=== PATIENT | female | born 1975 | race Caucasian/White ===

== ENCOUNTER 2018-11-18 20:37 | Inpatient (IN) ==
[2018-11-18 21:05] LABS: BASO# 0.09 X1000 (0.0-0.2); BASO% 1.1 % (0.0-0.8); EOS# 0.27 X1000 (0.0-0.7); EOS% 3.4 % (0.0-10.0); HEMATOCRIT 44.9 % (37.0-47.0); HEMOGLOBIN 15.3 g/dL (12.0-16.0); IMM GRAN# 0.02 X1000 (0.0-0.04); IMM GRAN% 0.2 % (0.0-0.5); LYMPH# 2.58 X1000 (1.2-3.4); LYMPH% 32.1 % (20.5-51.1); MCH 30.5 PG (27-31); MCHC 34.1 g/dL (33-37); MCV 89.4 FL (81-99); MPV 9.6 FL (7.4-10.4); NEUT# 4.68 X1000 (1.4-6.5); NEUT% 58.2 % (42.2-75.2); PLT 363 X1000 (130-400); RBC 5.02 XMIL (4.2-5.4); RDW 13.5 % (11.5-14.5); WBC 8.04 X1000 (4.8-10.8)
[2018-11-18 21:19] LABS: BILIRUBIN URINE NEGATIVE (NEGATIVE); BLOOD URINE NEGATIVE (NEGATIVE); CLARITY CLEAR (CLEAR); COLOR YELLOW; GLUCOSE URINE NEGATIVE (NEGATIVE); KETONE URINE NEGATIVE (NEGATIVE); LEUKOCYTES URINE NEGATIVE (NEGATIVE); NITRITE URINE NEGATIVE (NEGATIVE); PROTEIN URINE TRACE mg/dL (NEGATIVE); UROBILINOGEN URINE NORMAL
[2018-11-18 21:23] LABS: URINE BACTERIA NEGATIVE /HFP; URINE CAST NONE SEEN /LPF; URINE CRYSTAL NONE SEEN /HPF; URINE EPITHELIAL CELLS <10 /HPF (<10); URINE RBC <10 /HPF (<10); URINE SOURCE CLEAN CATCH; URINE WBC <10 /HPF (<10); URINE YEAST PRESENT /HPF
[2018-11-18 21:27] LABS: AGAP 17; ALKALINE PHOSPHATASE 68 U/L (32-104); BUN 13 mg/dL (8-22); CALCIUM 10.1 mg/dL (8.8-10.2); CHLORIDE 100 mmol/L (98-107); COSMO 284; CREATININE 0.7 mg/dL (0.5-0.9); ESTIMATED GFR > 60; GLUCOSE 115 mg/dL (70-104); GOT 20 U/L (10-30); GPT 18 U/L (10-36); LIPASE 49 U/L (13-60); POTASSIUM 4.2 mmol/L (3.5-5.1); SODIUM 142 mmol/L (136-145); TCO2 26 mmol/L (25-35); TOTAL PROTEIN 8.1 g/dL (6.3-8.3)
--- NOTE | 2018-11-18 21:37 | Diag Imaging Result Doc PS360 ---
EXAM: FLAT/UPRIGHT ABD/1 VIEW CHEST INDICATION: VOMITING HX BOWEL OBSTRUCTION TECHNIQUE: 3 views COMPARISON: CT of the chest, abdomen, and pelvis dated 03/28/2018. No prior plain radiograph of the chest or abdomen is available for comparison. FINDINGS: There are multiple metallic clips projecting over the pelvis related to a prior hysterectomy. There are unremarkable bowel gas and stool patterns. There is no obstructive bowel pattern. There is no evidence of large volume free abdominal gas. There is no evidence of organomegaly. There are multiple prominent masses throughout the lung parenchyma bilaterally consistent with metastatic sarcoma. These were also seen on the prior chest CT. There are also emphysematous changes bilaterally with gas-filled blebs, worst at the left lung base and the right midlung zone. There is a surgical staple line associated with the right midlung zone. No definite pneumothorax is appreciated. The cardiomediastinal silhouette and central vasculature are grossly unremarkable. IMPRESSION: 1.No definite acute abdominal pathology by plain radiograph. 2.Extensive metastatic to both lungs that was also seen on previous CT. Electronically signed by Allan Leach 11/18/2018 9:34 PM
--- NOTE | 2018-11-18 22:24 | PROVIDER DOCUMENTATION ---
HPI-Abdominal Pain/GI Problem - General Chief Complaint: Abdominal Pain Stated Complaint: BOWEL OBSTRUCTION Time Seen by Provider: 11/18/18 22:23 Source: patient Allergies/Adverse Reactions: Patient Allergies Allergy/AdvReac Type Severity Reaction Status Date / Time hydromorphone [From Dilaudid] AdvReac NAUSEA/VOMI Verified 11/19/18 00:14 TING sulfamethoxazole AdvReac NAUSEA/VOMI Verified 11/18/18 20:49 [From Bactrim] TING trimethoprim [From Bactrim] AdvReac NAUSEA/VOMI Verified 11/18/18 20:49 TING Home Medications: Home Medication List Medication Instructions Recorded Confirmed Last Taken Type Denosumab [Prolia] 60 mg SQ DIRECTED 11/19/18 11/19/18 Unknown History Fluticasone 50 Mcg Nasal [place] 16 gm NS PRN PRN 11/19/18 11/19/18 Unknown History [Flonase] Letrozole 1 tab PO DAILY 11/19/18 11/19/18 Unknown History Leuprolide Acetate [Lupron] 1 mg SQ DIRECTED 11/19/18 11/19/18 Unknown History Teriflunomide [Aubagio] 1 tab PO DAILY 11/19/18 11/19/18 Unknown History - History of Present Illness-ABD Nature of Presenting Problems: Patient is a 43 yowf presenting to the ED today for nausea and vomiting. She reports the pain as intermittent. She states she has a history of bowel obstructions. She has a history of lung cancer. She reports she has been hospitalized for the obstructions before. She denies any chest pain, SOB, dizziness, diarrhea. Abdominal Pain Onset Location: reports: LLQ, generalized abdomen Pain Radiation: reports: no radiation Quality of Pain: reports: aching, sharp, stabbing Severity in ED: reports: moderate Onset/Duration: reports: 4-6 hours ago Timing: reports: still present, intermittent Activities at Onset: reports: none Exposure to sick contacts?: No Modifying Factors: improves with: nothing Associated Symptoms: reports: nausea, vomiting. denies: chest pain, constipation, cough, diarrhea, dizziness, genitourinary problems, shortness of breath, swelling/mass in abdomen Last BM: this morning Dark Stools Present?: reports: none noticed Rectal Bleeding: reports: none Rectal Pain: reports: none Emesis Description: reports: clear Bruising or Bleeding Gums?: No Similar Symptoms Previously?: Yes Recently seen or treated by another doctor?: No Review of Systems - Adult - REVIEW OF SYSTEMS - ADULT Constitutional: reports: no symptoms reported. denies: chills, fever Eyes: reports: no symptoms reported Ears, Nose, Mouth & Throat: reports: no symptoms reported Cardiovascular: reports: no symptoms reported. denies: chest pain Respiratory: reports: no symptoms reported. denies: cough, shortness of breath Gastrointestinal: reports: abdominal pain, nausea, vomiting. denies: diarrhea, rectal bleeding Genitourinary: reports: no symptoms reported Musculoskeletal: reports: no symptoms reported Integumentary: reports: no symptoms reported Neurological: reports: no symptoms reported. denies: dizziness/vertigo, headache/migraines Psychiatric: reports: no symptoms reported Endocrine: reports: no symptoms reported Hematologic/Lymphatic: reports: no symptoms reported Allergic/Immunologic: reports: no symptoms reported All Other Systems: Reviewed and Negative Past History - Adult - PAST MEDICAL HISTORY-ADULT Review of Records: reports: Old Records Reviewed, Nursing Assessment Review, Medications Reviewed Major Childhood Illnesses: reports: denies history Cardiovascular: reports: denies history Respiratory: reports: other (lung cancer) Gastrointestinal: reports: obstruction Obstetrical/Gynecological: reports: denies history Genitourinary: reports: denies history Musculoskeletal: reports: denies history Neurological: reports: denies history Psychiatric: reports: denies history Endocrine/Immune: reports: denies history Other Conditions: reports: denies history - SOCIAL HISTORY Smoking: denies Physical Exam-General - PHYSICAL EXAM-ADULT Initial Vital Signs Reviewed: Yes - CONSTITUTIONAL General Appearance: alert, mild distress - EYES Eyes: PERRL/EOMI, pink conjunctivae - HEAD, EARS, NOSE, MOUTH & THROAT HENMT: normocephalic/atraumatic, moist mucous membranes - NECK Neck: non-tender, full range of motion, supple - RESPIRATORY Respiratory: chest non-tender, lungs clear, normal breath sounds, no respiratory distress - CARDIOVASCULAR Cardiovascular: normal peripheral pulses, regular rate, rhythm, no edema, no gallop, no JVD, no murmur - GASTROINTESTINAL (ABDOMEN) Abdominal Exam: normal bowel sounds, non tender, soft, no organomegaly - LYMPHATIC Lymphatic: no adenopathy - MUSCULOSKELETAL Back Exam: normal inspection, no CVA tenderness, no vertebral tenderness Extremity: normal range of motion, non-tender, normal inspection - SKIN Integumentary: normal color, normal turgor, warm/dry - NEUROLOGIC Neurologic: grossly normal - PSYCHIATRIC Psych/Mental Status: normal mood/affect, normal thought content, normal thought process, oriented x 3 Progress - PLAN OF CARE/RESULTS Progress/Plan/Lab Results: Vital Signs - 8 hr 11/18/18 20:41 Temperature 98.3 F Pulse Rate 95 H Respiratory Rate 18 Blood Pressure 165/109 O2 Sat by Pulse Oximetry 94 L Laboratory Results - last 24 hr 11/18/18 11/18/18 11/18/18 20:56 20:56 20:56 WBC 8.04 RBC 5.02 Hgb 15.3 Hct 44.9 MCV 89.4 MCH 30.5 MCHC 34.1 RDW Std Deviation 13.5 Plt Count 363 MPV 9.6 Immature Gran % (Auto) 0.2 Neut % (Auto) 58.2 Lymph % (Auto) 32.1 [place] % (Auto) 5.0 Eos % (Auto) 3.4 Baso % (Auto) 1.1 H Immature Gran # (Auto) 0.02 Neut # (Auto) 4.68 Lymph # (Auto) 2.58 [place] # (Auto) 0.40 Eos # (Auto) 0.27 Baso # (Auto) 0.09 Sodium 142 Potassium 4.2 Chloride 100 Carbon Dioxide 26 Anion Gap 17 BUN 13 Creatinine 0.7 Estimated GFR/1.73 m2 > 60 BUN/Creatinine Ratio 19 Glucose 115 H Calculated Osmolality 284 Calcium 10.1 Total Bilirubin 0.40 AST 20 ALT 18 Alkaline Phosphatase 68 Total Protein 8.1 Albumin 5.0 Globulin 3.0 Albumin/Globulin Ratio 2.0 Amylase 77 Lipase 49 Urine Source Urine Color Urine Clarity Urine pH Ur Specific [place] Urine Protein Urine Ketones Urine Blood Urine Nitrite Urine Bilirubin Urine Urobilinogen Urine Microscopic RBC Urine WBC Urine Microscopic WBC Ur Epithelial Cells Urine Crystals Urine Bacteria Urine Casts Urine Yeast Urine Glucose 11/18/18 21:10 WBC RBC Hgb Hct MCV MCH MCHC RDW Std Deviation Plt Count MPV Immature Gran % (Auto) Neut % (Auto) Lymph % (Auto) [place] % (Auto) Eos % (Auto) Baso % (Auto) Immature Gran # (Auto) Neut # (Auto) Lymph # (Auto) [place] # (Auto) Eos # (Auto) Baso # (Auto) Sodium Potassium Chloride Carbon Dioxide Anion Gap BUN Creatinine Estimated GFR/1.73 m2 BUN/Creatinine Ratio Glucose Calculated Osmolality Calcium Total Bilirubin AST ALT Alkaline Phosphatase Total Protein Albumin Globulin Albumin/Globulin Ratio Amylase Lipase Urine Source CLEAN CATCH Urine Color YELLOW Urine Clarity CLEAR Urine pH 7.0 Ur Specific [place] 1.010 Urine Protein TRACE A Urine Ketones NEGATIVE Urine Blood NEGATIVE Urine Nitrite NEGATIVE Urine Bilirubin NEGATIVE Urine Urobilinogen NORMAL Urine Microscopic RBC <10 Urine WBC NEGATIVE Urine Microscopic WBC <10 Ur Epithelial Cells <10 Urine Crystals NONE SEEN Urine Bacteria NEGATIVE Urine Casts NONE SEEN Urine Yeast PRESENT Urine Glucose NEGATIVE Orders Category Date Time Status FLAT/UPRIGHT ABD/1 VIEW CHEST [RAD] Stat Exams 11/18/18 20:56 Completed AMYLASE [CHEM] Stat Lab 11/18/18 20:56 Completed CBC WITH DIFF [HEME] Stat Lab 11/18/18 20:56 Completed CMP [COMPREHENSIVE METABOLIC PANEL] [CHEM] Stat Lab 11/18/18 20:56 Completed LIPASE [CHEM] Stat Lab 11/18/18 20:[address] W/POSS RFLX CULT [URINALYSIS] Stat Lab 11/18/18 21:10 Completed Discussed plan of care with patient and family, they understand and agree with plan of care. Deny any questions at this time. 22:40- discussed plan of care with Dr. Mcgill, he suggests CT abdomen. 23:07- Dr. Mcgill in to see patient. Patient having anxiety attack and he sugges kj ativan 1 mg IV. Result Diagrams: 11/18/18 20:56 11/18/18 20:56 - XRAY 1 XRAY Study: Abdomen Impression: See EMR Report ( EXAM: FLAT/UPRIGHT ABD/1 VIEW CHEST INDICATION: VOMITING HX BOWEL OBSTRUCTION TECHNIQUE: 3 views COMPARISON: CT of the chest, abdomen, and pelvis dated 03/28/2018. No prior plain radiograph of the chest or abdomen is available for comparison. FINDINGS: There are multiple metallic clips projecting over the pelvis related to a prior hysterectomy. There are unremarkable bowel gas and stool patterns. There is no obstructive bowel pattern. There is no evidence of large volume free abdominal gas. There is no evidence of organomegaly. There are multiple prominent masses throughout the lung parenchyma bilaterally consistent with metastatic sarcoma. These were also seen on the prior chest CT. There are also emphysematous changes bilaterally with gas-filled blebs, worst at the left lung base and the right midlung zone. There is a surgical staple line associated with the right midlung zone. No definite pneumothorax is appreciated. The cardiomediastinal silhouette and central vasculature are grossly unremarkable. IMPRESSION: 1.No definite acute abdominal pathology by plain radiograph. 2.Extensive metastatic to both lungs that was also seen on previous CT. Electronically signed by Allan Leach 11/18/2018 9:34 PM 11/18/182133 Interpreting Physician: Allan Leach MD Dictated Date/Time: 11/18/182127 cc: Lazaro Mcgill MD; Osvaldo Harley MD) - CT/MRI 1 CT Study: Abdomen, Pelvis Impression: Abnormal, Discussed w/Radiology CT Results: Dr. Mcgill spoke with vrad- partial distal SBO - CONSULTS/PCP/HOSPITALIST Notification #1 *Consult/PCP/Hospitalist*: Dr. Garrett Time Discussed: 12:15 Reason/Comments: admit for partial distal small bowel obstruction Consult Disposition: Admit Departure - Departure Date of Disposition Decision: 11/18/18 Time of Disposition Decision: 12:00 DIAGNOSIS: Small bowel obstruction Abdominal pain Qualifiers: Abdominal location: generalized Qualified Code(s): R10.84 - Generalized abdominal pain Disposition: ADMITTED INPATIENT 09 Certified Medical Emergency: Emergent Condition: Stable Referrals and Follow-Ups: Osvaldo Harley MD [Primary Care Provider] - - Critical Care Note This patient required my direct & personal management of CC.: No Attestation - Physician/ CHEMA Attestation Patient care was provided by Advanced Practice Provider:: Yes Advanced Practice Provider:: Radha Oliver Advanced Practice Provider documentation review:: The Mid-level provider documentation, treatment plan and medical decision making was reviewed by the physician who agrees with all treatment and medical decision making by the [facility]. The physician spent face to face time with patient:: Yes Advanced Practice Provider documentation review:: Supervising physician onsite and consulted in the evaluation and care of this patient. The physician did have a face to face encounter with the patient.
[2018-11-18] MEDS ORDERED: ATIVAN IV ONE ×2 (23:05→23:25)
[2018-11-19] MEDS ORDERED: ZOFRAN IV PRN ×2 (00:15→06:51)
[2018-11-19] MEDS ORDERED: NS 1,000 ML IV ONE ×2 (00:15→07:00)
[2018-11-19] MEDS ORDERED: MORPHINE IV PRN ×2 (00:15→06:51)
[2018-11-19] MEDS ORDERED: ATIVAN IV PRN ×2 (00:23→06:52)
--- NOTE | 2018-11-19 05:26 | Diag Imaging Result Doc PS360 ---
EXAM: CT ABD/PELVIS W/IV CONT ONLY HISTORY: abd pain TECHNIQUE: CT abdomen and pelvis with intravenous contrast COMPARISON: 07/29/2017 chest, abdomen and pelvis CT FINDINGS: There are large bulla in the lung bases. There are also multiple mixed density round masses in the lower lungs. The largest are in the left lung base along the pleural surface. There are two diffuse measuring 4.1 cm. These are similar in size to the prior study. There are multiple smaller nodules which are fairly similar as well. The gallbladder is contracted. There is enhancing of the wall, but no adjacent inflammation. Normal liver, spleen, pancreas, adrenal glands, and kidneys. There is a tiny right renal cyst. No hydronephrosis. Normal aorta. There is fluid and mild distention of multiple small bowel loops in the lower abdomen and pelvis. There is fecalization within several of the bowel loops. Transition point appears to be low in the pelvis where there are multiple surgical clips. Stool is found throughout the colon. The uterus has been removed. No pelvic mass. There is a small amount of free fluid. The urinary bladder is mildly distended. IMPRESSION: 1.Likely partial small bowel obstruction level in the pelvis 2.Hysterectomy 3.Multiple stable lower lung masses 4.A preliminary report was given at 12:12 AM This exam was performed using automated exposure control, adjustment of mA or kV according to patient size, and/or use of iterative reconstruction technique. Electronically signed by Shailesh Simeon 11/19/2018 5:24 AM
--- NOTE | 2018-11-19 07:56 | GENERAL SURGERY CONSULTATION ---
DATE: 11/19/2018 REQUESTING PHYSICIAN: Hospitalist. REASON FOR CONSULTATION: Bowel obstruction. HISTORY OF PRESENT ILLNESS: A 43-year-old female with a history of uterine sarcoma that is being followed by physicians in [place], presenting now with intermittent abdominal pain that started the day of presentation. She has been in the hospital for obstructions before, and says this is similar to that. The pain is mostly left lower quadrant, but has some generalized pain. It is described as aching and sharp. She was seen in the emergency department, and had a CT scan that showed a bowel obstruction. I was asked to weigh an opinion. The patient has been moved from the [facility] over to here. PAST MEDICAL HISTORY: Includes: 1. Multiple sclerosis. 2. History of uterine sarcoma. 3. History of Clostridium difficile. 4. History of metastatic disease. 5. Osteoporosis. PAST SURGICAL HISTORY: Includes appendectomy, hysterectomy, laparotomy, left oophorectomy, myomectomy, sinus surgery, chest tube insertion, and thoracic surgery. SOCIAL HISTORY: Nonsmoker. FAMILY HISTORY: Reviewed with the patient, but noncontributory. ALLERGIES: Dilaudid and sulfa. HOME MEDICATIONS: Reviewed. REVIEW OF SYSTEMS: A full 10-point review of systems was obtained, and negative except as specified in the HPI. PHYSICAL EXAMINATION: Vital Signs: The patient is currently afebrile. Her vital signs are stable. General: No acute distress. HEENT: Normocephalic, atraumatic. Pupils equal, round, reactive to light. Mucous membranes moist. Oropharynx benign. Neck: Supple. Trachea midline. Cardiovascular: Regular rate and rhythm. Lungs: Grossly clear. Abdomen: Soft, nondistended. Surgical scar is noted. No peritoneal signs. Extremities: Moves all extremities. Neurologic: Grossly intact. Skin: No signs of jaundice. Vascular: All extremities perfused. IMAGING AND LABORATORY DATA: Laboratory reviewed, almost essentially within normal limits. CT scan independently reviewed, and radiology report reviewed. ASSESSMENT AND PLAN: A 43-year-old female with multiple medical issues, now with bowel obstruction. 1. Bowel obstruction. At this time, would like to try to manage her nonoperatively. If she gets nauseated, will consider nasogastric tube, but right now keep her on bowel rest with intravenous fluids. 2. Multiple medical comorbidities to be managed by the Hospitalist Service. cc: Greg Ann MD
--- NOTE | 2018-11-19 08:40 | HISTORY AND PHYSICAL ---
HISTORY OF PRESENT ILLNESS: This is a 43-year-old who presented with bowel obstruction. She is followed by Dr. Osvaldo Harley. I think her oncologist is at [facility]. A 43-year-old with uterine sarcoma, is followed by an oncologist in [place], intermittent abdominal pain. She has been in the hospital for obstructions before and this is similar to that. The pain is mostly in the left lower quadrant and she feels pressure and also some aching and sharp component to it. Emergency room CT scan showed bowel obstruction and she was admitted, transferred over to [place]. PAST MEDICAL HISTORY: 1. Multiple sclerosis. 2. History of uterine sarcoma. 3. History of Clostridium difficile. 4. History of metastatic disease. 5. Osteoporosis. PAST SURGICAL HISTORY: Includes appendectomy, status post hysterectomy, status post laparotomy, status post left oophorectomy, myomectomy, sinus surgery, chest tube insertion, and thoracic surgery. SOCIAL HISTORY: Nonsmoker. The patient recently moved here. No alcohol. ALLERGIES: Dilaudid and sulfa. REVIEW OF SYSTEMS: General: She has not reported any weight loss, no fever or chills. HEENT: No change in hearing or visual acuity. Gastrointestinal/genitourinary: As above. No gross hematuria, dysuria. Musculoskeletal/Neurologic: No focal changes or complaints. Endocrinologic/Hematologic: No significant history. ASSESSMENT AND PLAN: 1. Apparently uterine sarcoma, metastatic, with small-bowel obstruction. She does not have a sole dyer here. Her lab is pretty unremarkable. Good renal function. Continue IV hydration. 2. History of multiple sclerosis. It sounds like it has been stable. No active neurologic symptoms are present. 3. History of Clostridium difficile. 4. History of osteoporosis. REVIEW OF HER ORDERS: I do not see any change. She is getting normal saline at 125 mL an hour. cc: J Luis Hernández MD
[2018-11-19] MEDS ORDERED: NS 1,000 ML IV SCH (08:45)
[2018-11-19] MEDS ORDERED: FLONASE NAS PRN (08:46)
[2018-11-19] MEDS: NS 1,000 ML IV SCH ×2 (09:52→18:06)
[2018-11-19] MEDS: PATIENT'S OWN MED PO SCH (17:39)
[2018-11-20] MEDS: NS 1,000 ML IV SCH ×2 (03:29→09:37)
[2018-11-20 07:06] LABS: INR 1.12; PROTIME 15.3 Seconds (11.0-16.0); PTT 27.3 Seconds (22.3-41.8)
[2018-11-20 07:09] LABS: BASO# 0.01 X1000 (0.0-0.2); BASO% 0.2 % (0.0-0.8); EOS# 0.09 X1000 (0.0-0.7); EOS% 1.7 % (0.0-10.0); HEMATOCRIT 40.2 % (37.0-47.0); HEMOGLOBIN 13.2 g/dL (12.0-16.0); LYMPH# 2.43 X1000 (1.2-3.4); LYMPH% 45.1 % (20.5-51.1); MCH 30.3 PG (27-31); MCHC 32.8 g/dL (33-37); MCV 92.2 FL (81-99); MONO# 0.37 X1000 (0.11-0.59); MONO% 6.9 % (1.7-9.3); MPV 10.3 FL (7.4-10.4); NEUT# 2.49 X1000 (1.4-6.5); NEUT% 46.1 % (42.2-75.2); PLT 274 X1000 (130-400); RBC 4.36 XMIL (4.2-5.4); RDW 13.6 % (11.5-14.5); WBC 5.39 X1000 (4.8-10.8)
[2018-11-20 07:14] LABS: AGAP 10; ALB/GLOB RATIO 1.6; ALBUMIN 3.6 g/dL (3.5-5.0); ALKALINE PHOSPHATASE 45 U/L (32-104); BUN 9 mg/dL (8-22); CALCIUM 8.4 mg/dL (8.8-10.2); CHLORIDE 113 mmol/L (98-107); COSMO 288; CREATININE 0.6 mg/dL (0.5-0.9); ESTIMATED GFR > 60; GLUCOSE 78 mg/dL (70-104); GOT 15 U/L (10-30); GPT 9 U/L (10-36); MAGNESIUM 1.9 mg/dL (1.5-2.7); POTASSIUM 3.5 mmol/L (3.5-5.1); SODIUM 146 mmol/L (136-145); TCO2 23 mmol/L (25-35); TOTAL BILIRUBIN 0.54 mg/dL (0.20-1.00); TOTAL PROTEIN 5.9 g/dL (6.3-8.3)
[2018-11-20 07:29] LABS: FREE T4 0.93 ng/dL (0.93-1.70); TSH 3.54 uIUmL (0.27-4.20)
[2018-11-20 07:56] VITALS: BP 137/79
--- NOTE | 2018-11-20 08:42 | GENERAL SURGERY PROGRESS NOTE ---
DATE: 11/20/2018 SUBJECTIVE: Patient doing well. She has passed gas. She is feeling okay. No nausea. OBJECTIVE: Vital Signs: The patient is currently afebrile. Vital signs stable. General: No acute distress. HEENT: Normocephalic, atraumatic. Pupils equal, round, reactive to light. Mucous membranes moist. Oropharynx benign. Neck: Supple. Trachea midline. Cardiovascular: Regular rate and rhythm. Lungs: Grossly clear. Abdomen: Soft, nondistended, nontender. Some bowel sounds auscultated. Extremities: Moves all extremities. Neurologic: Grossly intact. Skin: No signs of jaundice. Vascular: All extremities perfused. LABORATORY DATA: None. ASSESSMENT AND PLAN: A 43-year-old female with resolving partial small bowel obstruction. Partial small bowel obstruction. At this time, as she is passing gas, I think she is having some return of function. Will start her on a clear liquid diet. I told her to inform us if she gets any nausea. cc: Greg Ann MD
--- NOTE | 2018-11-20 09:28 | Diag Imaging Result Doc PS360 ---
EXAM: ABDOMEN FLAT/UPRIGHT 11/20/2018 HISTORY: f/u on sbo TECHNIQUE: Flat and upright abdomen COMMENT: There are surgical clips throughout the lower pelvis. There are some distended small bowel loops and there is gas and stool in the colon. The stomach is not distended. Compared to 11/18/2018 the degree of gaseous dilatation of the small bowel loops is slightly worse. IMPRESSION: Mild ileus. Electronically signed by Brooks Patel 11/20/2018 9:26 AM
[2018-11-20] MEDS: PATIENT'S OWN MED PO SCH (09:42)
--- NOTE | 2018-11-20 10:10 | DISCHARGE SUMMARY ---
ADMISSION DATE: 11/19/2018 DISCHARGE DATE: 11/20/2018 HISTORY OF PRESENT ILLNESS: She is followed by Dr. Osvaldo Harley. I think at the present time, Dr. Valerie Hunter is following her. A 43-year-old who presented with bowel obstruction. Followed by Dr. Valerie Hunter. Oncologist is at [place] in [facility]. She has uterine sarcoma, followed by oncologist in [place], intermittent abdominal pain. She has also been diagnosed with multiple sclerosis. I think last time she had to be in the hospital is 5 years ago. The pain is mostly in the left lower quadrant. On presentation this time, feels pressure, aching and sharp component to it. In the emergency room, CT scan showed bowel obstruction and admitted. PAST MEDICAL HISTORY: 1. Multiple sclerosis. 2. History of uterine sarcoma. 3. History of Clostridium difficile. 4. Metastatic disease, metastatic uterine sarcoma. 5. Osteoporosis. PAST SURGICAL HISTORY: Includes appendectomy, status post hysterectomy, status post laparotomy, status post oophorectomy and myomectomy, status post sinus surgery. She has had chest tube insertions in the past, thoracic surgery. HOSPITAL COURSE: Admitted with what appeared to be a partial small bowel obstruction, underlying metastatic sarcoma, and was given IV fluids. She improved and was able to tolerate fluids, and was requesting to go home. Followup abdominal x-ray showed mild ileus. The original abdominal and pelvic CT showed likely partial small bowel obstruction, status post hysterectomy, multiple stable lower lung masses. I will let her go home at her request. DISCHARGE MEDICATIONS: She is on Flonase 2 puffs each nostril every day. Her home medications included Prolia 60 mg subcutaneous I think as directed, letrozole 1 daily, Lupron 1 mg, and teriflunomide and I think that is one tablet a day. FOLLOWUP: She will follow up with Dr. Valerie Hunter and her oncologist. cc: J Luis Hernández MD [facility]
== END 2018-11-20 12:43 | disposition home or self-care (01) | DRG 390 ==
LOC: P.ED 20:37 → P.EDIPHOLD 11-19 02:31 → SUATTDRO 11-19 02:31 → 4N 11-19 06:45
PROVIDERS: ATTEND Emergency Medicine
CPT/HCPCS: 74019; 74020; 74022; 74177; 80053; 81001; 82150; 82607; 82746; 83690; 83735; 84439; 84443; 85025; 85610; 85730; 93005; 94761; 94799; 96374; 96376; 99285; J2060; J2270; J2405; J7030; Q9967